=== PATIENT | female | born 1960 | race Caucasian/White ===

== ENCOUNTER 2022-11-21 16:15 | Emergency (ER) | payer SELFPAY ==
[2022-11-21 17:12] LABS: Bilirubin Negative (Negative); Blood, Urine Small (Negative); Clarity Clear (Clear); Glucose, Urine (Dipstick) Negative (Negative); Ketone, Urine Negative (Negative); Leukocyte Negative (Negative); Nitrite Positive (Negative); Protein, Urine (Dipstick) Negative (Neg-Trace); Urobilinogen 0.2 mg/dL (Less than 2); pH, Urine 5.5 (5.0-9.0)
[2022-11-21 17:19] LABS: Bacteria/HPF Rare-Few HPF (None Seen); CAUTI Indications for Culture Dysuria,urgency,freq; Mucous/LPF Few LPF (<2+); WBC/HPF 0-3 HPF (0-3)
[2022-11-21 17:20] LABS: Urine Culture Reflex No No
[2022-11-21] MEDS ORDERED: Sodium Chloride 0.9% 1,000 ML ONE (18:32)
[2022-11-21 18:41] LABS: ALT (SGPT) 34 U/L (8-55); AST (SGOT) 36 U/L (5-34); Albumin 4.2 g/dL (3.4-4.8); Alkaline Phosphatase 123 U/L (40-110); Anion Gap 14 mmol/L (10-20); BUN (Urea Nitrogen) 12 mg/dL (9.8-20.1); Bilirubin, Total 0.4 mg/dL (0.2-1.2); Calc. Creatinine Clearance 0 mL/min (70-130); Calcium 9.6 mg/dL (7.8-10.44); Carbon Dioxide 26 mmol/L (23-31); Chloride 103 mmol/L (98-107); Estimated GFR 69; Globulin 3.4 g/dL (2.4-3.5); Glucose 99 mg/dL (80-115); Potassium 3.7 mmol/L (3.5-5.1); Protein, Total 7.6 g/dL (5.8-8.1); Sodium 139 mmol/L (136-145)
[2022-11-21 18:51] LABS: Eosinophils 3 % (0-10); Hemoglobin 13.7 g/dL (12.0-16.0); Lymphocytes 8 % (21-51); MDiff Complete? YES; Mean Corpuscular Hemoglobin 31.2 pg (27.0-31.0); Mean Corpuscular Volume 97.6 fl (78.0-98.0); Mean Platelet Volume 10.9 fL (7.4-10.4); Metamyelocyte 1 % (0-0); Monocytes 2 % (0-10); Neutrophil 76 % (42-75); Platelet Adequacy Comment Appears Adequate; Platelet Count 215 10x3/uL (130-400); RBC Distribution Width 12.9 % (11.5-14.5); Reactive Lymphocytes 10 % (0-10); Red Blood Cell (RBC) Count 4.41 mill/uL (4.20-5.40); White Blood Cell (WBC) Count 11.9 10x3/uL (4.8-10.8)
[2022-11-21] MEDS ORDERED: Sodium Chloride 0.9% 100 ML ONE (19:34)
[2022-11-21] MEDS ORDERED: cefTRIAXone (ROCEPHIN) 1 GM VIAL ONE (19:34)
[2022-11-21] MEDS ORDERED: metroNIDAZOLE 500 MG/100 ML BAG ONE (19:34)
== END 2022-11-21 21:30 | disposition home or self-care (01) ==
LOC: MADERS 16:15
DX: K57.32 Diverticulitis of large intestine without perforation or abscess without bleeding (principal); E11.9 Type 2 diabetes mellitus without complications; E78.5 Hyperlipidemia, unspecified; Z79.899 Other long term (current) drug therapy
CPT/HCPCS: 74176; 80053; 81001; 85025; 96365; 96367; J0696; J3490; J7050